=== PATIENT | female | born 1985 | race Caucasian/White ===

== ENCOUNTER 2018-03-13 00:47 | Inpatient (IN) | payer OTHER ==
[~2018-03-13] VITALS: Ht 162.6 cm; Wt 102.7 kg
[~2018-03-13 00:47] MED LIST: BIRTH CONTROL; CYCL10 PO; HYDACE5 PO; OXYACE5T PO; PRED10 PO
[2018-03-13] MEDS ORDERED: LABE200 PO (01:42)
[2018-03-13] MEDS ORDERED: Evening Primro1 EACH PO (01:43)
[2018-03-13] MEDS ORDERED: Verotin-Gr Cap1 EACH PO (01:43)
[2018-03-13] MEDS ORDERED: IRON150C PO (01:44)
[2018-03-13 02:17] LABS: BASOPHILS ABSOLUTE AUTO 0.03 K/mm3 (0.00-0.23); BASOPHILS PERCENT AUTO 0 % (0-2); EOSINOPHILS ABSOLUTE AUTO 0.09 K/mm3 (0.00-0.68); EOSINOPHILS PERCENT AUTO 1 % (0-6); Hematocrit 35.5 % (33.0-51.0); Hemoglobin 12.1 g/dL (11.5-16.0); IMMATURE GRAN ABSOLUTE AUTO 0.07 K/mm3 (0.00-0.10); IMMATURE GRAN PERCENT AUTO 1 % (0-1); LYMPHOCYTES ABSOLUTE AUTO 1.75 K/mm3 (0.84-5.20); LYMPHOCYTES PERCENT AUTO 18 % (21-46); MONOCYTES ABSOLUTE AUTO 0.49 K/mm3 (0.16-1.47); MONOCYTES PERCENT AUTO 5 % (4-13); Mean Corpuscular HGB 29.7 pg (26.0-34.0); Mean Corpuscular HGB Conc 34.1 g/dL (31.5-36.5); Mean Corpuscular Volume 87 fL (80-100); Mean Platelet Volume 11.5 fL (9.1-12.4); NEUTROPHILS ABSOLUTE AUTO 7.57 K/mm3 (1.96-9.15); NEUTROPHILS PERCENT AUTO 76 % (41-73); Platelet Count 221 K/mm3 (150-400); RDW Coefficient Variation 14.2 % (11.7-14.2); RDW Standard Deviation 44.6 fL (35.1-46.3); Red Blood Cell Count 4.07 M/mm3 (3.80-5.20)
[2018-03-14 05:46] LABS: BASOPHILS ABSOLUTE AUTO 0.03 K/mm3 (0.00-0.23); BASOPHILS PERCENT AUTO 0 % (0-2); EOSINOPHILS ABSOLUTE AUTO 0.08 K/mm3 (0.00-0.68); EOSINOPHILS PERCENT AUTO 1 % (0-6); Hematocrit 31.6 % (33.0-51.0); Hemoglobin 10.6 g/dL (11.5-16.0); IMMATURE GRAN ABSOLUTE AUTO 0.03 K/mm3 (0.00-0.10); IMMATURE GRAN PERCENT AUTO 0 % (0-1); LYMPHOCYTES ABSOLUTE AUTO 1.82 K/mm3 (0.84-5.20); LYMPHOCYTES PERCENT AUTO 16 % (21-46); MONOCYTES ABSOLUTE AUTO 0.56 K/mm3 (0.16-1.47); MONOCYTES PERCENT AUTO 5 % (4-13); Mean Corpuscular HGB 30.1 pg (26.0-34.0); Mean Corpuscular HGB Conc 33.5 g/dL (31.5-36.5); Mean Corpuscular Volume 90 fL (80-100); Mean Platelet Volume 11.3 fL (9.1-12.4); NEUTROPHILS PERCENT AUTO 78 % (41-73); Platelet Count 180 K/mm3 (150-400); RDW Coefficient Variation 14.4 % (11.7-14.2); RDW Standard Deviation 46.9 fL (35.1-46.3); Red Blood Cell Count 3.52 M/mm3 (3.80-5.20); White Blood Cell Count 11.52 K/mm3 (4.00-11.30)
[2018-03-15] MEDS ORDERED: IBU800 MG PO (09:35)
== END 2018-03-15 10:30 | disposition home or self-care (01) | DRG 775 ==
LOC: BC 00:47 → OBS 00:47 → BC 01:08
PROVIDERS: Nurse Practitioner Obstetrics & Gynecology
PROC: 10E0XZZ Delivery of Products of Conception, External Approach (ICD-10-PCS; principal; 2018-03-13)
PROC: 00HU33Z Insertion of Infusion Device into Spinal Canal, Percutaneous Approach (ICD-10-PCS; 2018-03-13)
PROC: 3E0R3BZ Introduction of Anesthetic Agent into Spinal Canal, Percutaneous Approach (ICD-10-PCS; 2018-03-13)
DX: O42.02 Full-term premature rupture of membranes, onset of labor within 24 hours of rupture (principal); O13.4 Gestational [pregnancy-induced] hypertension without significant proteinuria, complicating childbirth; O77.0 Labor and delivery complicated by meconium in amniotic fluid; O99.824 Streptococcus B carrier state complicating childbirth; O43.193 Other malformation of placenta, third trimester; O70.0 First degree perineal laceration during delivery; Z3A.39 39 weeks gestation of pregnancy; Z37.0 Single live birth; Z87.891 Personal history of nicotine dependence
CPT/HCPCS: 36415; 51702; 85025; J0290; J1885; J2405; J2590; J3010; J7120

== ENCOUNTER 2020-06-27 19:58 | Inpatient (IN) | payer OTHER ==
[~2020-06-27] VITALS: Ht 162.6 cm; Wt 100.9 kg
[~2020-06-27 19:58] MED LIST changes: +Evening Primro1 EACH PO; +IBU800 MG PO; +IRON150C PO; +LABE200 PO; +Verotin-Gr Cap1 EACH PO
[2020-06-27] MEDS ORDERED: MAGNESIUM OXID500 MG (20:15)
[2020-06-27] MEDS ORDERED: LABE200 PO (20:15)
[2020-06-27] MEDS ORDERED: IRON18 MG (20:18)
[2020-06-27 21:27] LABS: BASOPHILS ABSOLUTE AUTO 0.03 K/mm3 (0.00-0.23); BASOPHILS PERCENT AUTO 0 % (0-2); EOSINOPHILS ABSOLUTE AUTO 0.05 K/mm3 (0.00-0.68); EOSINOPHILS PERCENT AUTO 1 % (0-6); Hematocrit 32.7 % (33.0-51.0); Hemoglobin 10.7 g/dL (11.5-16.0); IMMATURE GRAN ABSOLUTE AUTO 0.02 K/mm3 (0.00-0.10); IMMATURE GRAN PERCENT AUTO 0 % (0-1); LYMPHOCYTES ABSOLUTE AUTO 1.54 K/mm3 (0.84-5.20); LYMPHOCYTES PERCENT AUTO 18 % (21-46); MONOCYTES ABSOLUTE AUTO 0.45 K/mm3 (0.16-1.47); MONOCYTES PERCENT AUTO 5 % (4-13); Mean Corpuscular HGB Conc 32.7 g/dL (31.5-36.5); Mean Corpuscular Volume 92 fL (80-100); NEUTROPHILS ABSOLUTE AUTO 6.71 K/mm3 (1.96-9.15); NEUTROPHILS PERCENT AUTO 76 % (41-73); Platelet Count 161 K/mm3 (150-400); RDW Coefficient Variation 14.7 % (11.7-14.2); RDW Standard Deviation 49.4 fL (35.1-46.3); Red Blood Cell Count 3.57 M/mm3 (3.80-5.20)
[2020-06-27 21:37] LABS: Alanine Aminotransfer (ALT/SGP 22 U/L (12-78); Albumin, Blood 2.6 g/dL (3.4-5.0); Albumin/Globulin Ratio 0.6 (0.8-1.8); Alk Phos 160 U/L (50-136); Anion Gap 8 mmol/L (6-16); Aspartate Aminotrans (AST/SGOT 21 U/L (12-37); Bilirubin, Total 0.4 mg/dL (0.1-1.0); Blood Urea Nitrogen 12 mg/dL (8-24); Bun/Creatinine Ratio 16.9 (12.0-20.0); CO2, Blood 21 mmol/L (21-32); Calcium, Blood 9.1 mg/dL (8.5-10.1); Chloride, Blood 110 mmol/L (98-108); Creatinine, Blood 0.71 mg/dL (0.40-1.00); Globulin, Blood 4.1 g/dL (2.2-4.0); Glomerular Filtration Rate >60 (60-); Glucose, Blood 80 mg/dL (70-99); Potassium, Blood 4.1 mmol/L (3.5-5.5); Sodium, Blood 139 mmol/L (136-145); Total Protein, Blood 6.7 g/dL (6.4-8.2)
--- NOTE | 2020-06-27 22:27 | NUR ---
2 attempts by Woody, 2 attempts bt Leila RN, 1 attempt by facilities technician student, and 1 attempt by Fanny WHITNEY
--- NOTE | 2020-06-28 15:32 | NUR ---
RN ROUNDED TO HELP W/ . PT HAS BEEN PUMPING AND HAS A GOOD AMOUNT OF COLOSTRUM IN SYRINGE AT BEDSIDE. ATTEMPTED TO HELP LATCH NB AT BREAST, MOM STATES NB HAD FED ON OTHER SIDE JUST BEFORE RN CAME TO ROOM, NB NOT SHOWING ANY INTEREST IN FEEDING AT THIS TIME. INSTRUCT/DEMO CORRECT POSITIONING, LATCHING, AND HAND EXPRESSION. INSTRUCTED PT IN SUPPLY AND DEMAND OF MILK SUPPLY. MOM AND DAD LOVING W/ NB, BOTH DENY ANY FURTHER QUESTIONS OR CONCERNS.
--- NOTE | 2020-06-29 00:04 | NUR ---
06-28-20 2100 pt c/o lower back discomfort whener her spinal was. egg crate mattress on bed and given kpad for heat to lower back
[2020-06-29 05:00] LABS: BASOPHILS ABSOLUTE AUTO 0.03 K/mm3 (0.00-0.23); BASOPHILS PERCENT AUTO 0 % (0-2); EOSINOPHILS ABSOLUTE AUTO 0.05 K/mm3 (0.00-0.68); EOSINOPHILS PERCENT AUTO 1 % (0-6); Hematocrit 34.4 % (33.0-51.0); Hemoglobin 11.3 g/dL (11.5-16.0); IMMATURE GRAN ABSOLUTE AUTO 0.03 K/mm3 (0.00-0.10); IMMATURE GRAN PERCENT AUTO 0 % (0-1); LYMPHOCYTES ABSOLUTE AUTO 0.68 K/mm3 (0.84-5.20); LYMPHOCYTES PERCENT AUTO 7 % (21-46); MONOCYTES ABSOLUTE AUTO 0.19 K/mm3 (0.16-1.47); MONOCYTES PERCENT AUTO 2 % (4-13); Mean Corpuscular HGB 29.9 pg (26.0-34.0); Mean Corpuscular HGB Conc 32.8 g/dL (31.5-36.5); Mean Corpuscular Volume 91 fL (80-100); Mean Platelet Volume 12.3 fL (9.1-12.4); NEUTROPHILS ABSOLUTE AUTO 8.97 K/mm3 (1.96-9.15); NEUTROPHILS PERCENT AUTO 90 % (41-73); Platelet Count 136 K/mm3 (150-400); RDW Coefficient Variation 14.8 % (11.7-14.2); Red Blood Cell Count 3.78 M/mm3 (3.80-5.20); White Blood Cell Count 9.95 K/mm3 (4.00-11.30)
--- NOTE | 2020-06-29 05:33 | NUR ---
06-29-20 0530 pt states her pain is slightly lessened. states it mostly hurts where her spinal was placed, states :it feels like I was punched in the back" continues with heated kpad and encouraged to lay on her side when possible
--- NOTE | 2020-06-29 09:15 | NUR ---
PT GIVEN WRITTEN AND VERBAL DC INSTRUCTIONS. PT VERBALIZES UNDERSTTANDING AND QUESTIONS ANSWERED. pT WILL FOLLOW UP SCHEDULED AT [facility] FOR PPFU AFTER BABIES TSB RESULTS COMES BACK. PRESCRIPTION FOR IBUPROFEN GIVEN.
--- NOTE | 2020-06-29 12:45 | NUR ---
D/C HOME W/S.O. AND BABY; DENIES QUESTIONS OR CONCERNS
== END 2020-06-29 12:45 | disposition home or self-care (01) | DRG 807 ==
LOC: OBS 19:58 → BC 19:59 → OBS 20:08 → BC 20:09
PROVIDERS: ADMIT Nurse Practitioner Obstetrics & Gynecology
PROC: 3E0P7VZ Introduction of Hormone into Female Reproductive, Via Natural or Artificial Opening (ICD-10-PCS; 2020-06-27)
PROC: 10E0XZZ Delivery of Products of Conception, External Approach (ICD-10-PCS; principal; 2020-06-28)
PROC: 00HU33Z Insertion of Infusion Device into Spinal Canal, Percutaneous Approach (ICD-10-PCS; 2020-06-28)
PROC: 3E0R3BZ Introduction of Anesthetic Agent into Spinal Canal, Percutaneous Approach (ICD-10-PCS; 2020-06-28)
DX: O11.4 Pre-existing hypertension with pre-eclampsia, complicating childbirth (principal); Z37.0 Single live birth; O99.824 Streptococcus B carrier state complicating childbirth; Z3A.38 38 weeks gestation of pregnancy; O77.0 Labor and delivery complicated by meconium in amniotic fluid; O69.2XX0 Labor and delivery complicated by other cord entanglement, with compression, not applicable or unspecified
CPT/HCPCS: 36415; 51702; 80053; 85025; A9270; J0290; J1885; J2001; J2590; J3010; J7120

== ENCOUNTER → 2021-04-21 | Outpatient (CLI) | payer OTHER ==
[~2021-04-21] MED LIST changes: +IRON18 MG; +MAGNESIUM OXID500 MG
== END | disposition home or self-care (01) ==
LOC: LAB SHORT 13:04 → LAB 13:04
DX: D22.4 Melanocytic nevi of scalp and neck (principal)
CPT/HCPCS: 88305

== ENCOUNTER → 2022-11-28 | Outpatient (CLI) | payer OTHER | END | disposition home or self-care (01) | LOC: LAB 11:30 → LAB SHORT 11:30 | DX: N39.0 Urinary tract infection, site not specified (principal); N94.3 Premenstrual tension syndrome; N95.1 Menopausal and female climacteric states; I10 Essential (primary) hypertension; R68.82 Decreased libido; Z79.890 Hormone replacement therapy | CPT/HCPCS: 87077; 87086; 87147; 87186 ==

== ENCOUNTER 2023-08-09 06:37 | Day surgery (SDC) | payer OTHER ==
[2023-08-07 14:45] LABS: BASOPHILS ABSOLUTE AUTO 0.03 K/mm3 (0.00-0.23); BASOPHILS PERCENT AUTO 1 % (0-2); EOSINOPHILS PERCENT AUTO 2 % (0-6); Hematocrit 40.4 % (33.0-51.0); Hemoglobin 13.4 g/dL (11.5-16.0); IMMATURE GRAN ABSOLUTE AUTO 0.02 K/mm3 (0.00-0.10); IMMATURE GRAN PERCENT AUTO 0 % (0-1); LYMPHOCYTES ABSOLUTE AUTO 1.37 K/mm3 (0.84-5.20); LYMPHOCYTES PERCENT AUTO 24 % (21-46); MONOCYTES ABSOLUTE AUTO 0.27 K/mm3 (0.16-1.47); MONOCYTES PERCENT AUTO 5 % (4-13); Mean Corpuscular HGB Conc 33.2 g/dL (31.5-36.5); Mean Corpuscular Volume 90 fL (80-100); Mean Platelet Volume 10.5 fL (9.1-12.4); NEUTROPHILS ABSOLUTE AUTO 3.97 K/mm3 (1.96-9.15); NEUTROPHILS PERCENT AUTO 69 % (41-73); Platelet Count 232 K/mm3 (150-400); RDW Standard Deviation 42.6 fL (35.1-46.3); Red Blood Cell Count 4.47 M/mm3 (3.80-5.20); White Blood Cell Count 5.76 K/mm3 (4.00-11.30)
[2023-08-07 15:46] LABS: Anion Gap 5 mmol/L (6-16); Beta HCG, Quantitative, Serum <1 mIU/mL (0-3); Blood Urea Nitrogen 13 mg/dL (8-24); Bun/Creatinine Ratio 17.2 (12.0-20.0); CO2, Blood 28 mmol/L (21-32); Calcium, Blood 8.4 mg/dL (8.5-10.1); Chloride, Blood 108 mmol/L (98-108); Creatinine, Blood 0.76 mg/dL (0.40-1.00); Glomerular Filtration Rate 103 (60-); Glucose, Blood 111 mg/dL (70-99); Potassium, Blood 3.3 mmol/L (3.5-5.5); Sodium, Blood 141 mmol/L (136-145)
[~2023-08-09] VITALS: Ht 162.6 cm; Wt 67.8 kg
[2023-08-09] VITALS (16 sets, daily range): BP systolic 108–182; BP diastolic 64–134
[~2023-08-09 06:37] MED LIST changes: +CENTRUM SILVER1 EAC2 PO
[2023-08-09] MEDS ORDERED: CATAPRES0.1 MG PO (07:10)
[2023-08-09] MEDS ORDERED: OZEMPIC0.25 MG/02 SQ (07:10)
--- NOTE | 2023-08-09 07:41 | NUR ---
Ambulatory in Day Surgery. History, Chart, Medications and Allergies reviewed before start of procedure. Lungs clear T/O to Auscultation. Patient confirms NPO status and agrees with scheduled surgery. Pre-Op teaching done. Pt verbalizes understanding. Patient States Post-Procedure ride home has been arranged. PT BELONGINGS PLACED UNDERNEATH [facility] FOR SAFEKEEPING.
--- NOTE | 2023-08-09 12:42 | NUR ---
PATIENT ARRIVED FROM PACU TODAY AT 1230. POD 0 TOTAL LAP HYSTER PATIENT IS DROWSY BUT IS ABLE TO RESPOND TO VERBAL STIMULI. VS ARE WNL. PATIENT REPORTS 8/10 PAIN AND PATIENT WAS GIVEN IV DILAUDID WHICH HAS HELPED MANAGE HER PAIN. HER ABD HAS X4 LAP SITES WITH WOUND GLUE THAT ARE C/D/I. PATIENT WAS ABLE TO TOLERATE A SMALL AMOUNT OF PO INTAKE. PRIETO IS DRAINING PER GRAVITY WITH YELLOW URINE. PATIENT IS LAYING IN BED WITH CALL LIGHT IN REACH AND AT BEDSIDE.
--- NOTE | 2023-08-09 15:03 | NUR ---
SHIFT SUMMARY: POD 0 TOTAL LAP HYSTER PATIENT IS MORE AWAKE THIS AFTERNOON AND IS A&OX4. PATIENT SBP IS HIGH HOWEVER, HER OTHER VS ARE WNL. TO MANAGE PATIENTS SBP SHE WAS GIVEN HER PO CATAPRES JUST NOW. WILL CONTINUE TO MONITOR HER SBP. HER ABD HAS X4 LAP SITES WITH WOUND GLUE THAT ARE C/D/I. SHE IS TOLERATING PO INTAKE. PRIETO WAS DISCONTINUED AT 1440 AND SHE WAS ABLE TO VOID 100ML. PATIENT ZAKI PAD HAS SCANT AMOUNT OF BLEEDING. SHE IS LAYING BACK IN BED WITH CALL LIGHT IN REACH AND AT BEDSIDE.
[2023-08-10 00:08] VITALS: BP 123/88
[2023-08-10 04:20] VITALS: BP 137/80
--- NOTE | 2023-08-10 04:25 | NUR ---
SHIFT SUMMARY POD 1 LAP HYSTERECTOMY 4 LAP SITES CLOSED WITH GLUE, C/D/I. PAIN MANAGED PER EMAR. PT UP TO THE BATHROOM, VOIDING, TOLERATING PO INTAKE. DENIES N/V. VSS. PLAN FOR DISCHARGE TODAY. NO OTHER CONCERNS AT THIS TIME. CALL LIGHT WITHIN REACH.
[2023-08-10 07:03] LABS: Hematocrit 35.3 % (33.0-51.0); Hemoglobin 11.7 g/dL (11.5-16.0); Mean Corpuscular HGB Conc 33.1 g/dL (31.5-36.5); Mean Corpuscular Volume 91 fL (80-100); Mean Platelet Volume 10.5 fL (9.1-12.4); Platelet Count 237 K/mm3 (150-400); RDW Coefficient Variation 13.1 % (11.7-14.2); White Blood Cell Count 11.45 K/mm3 (4.00-11.30)
[2023-08-10 07:47] VITALS: BP 130/95
[2023-08-10] MEDS ORDERED: Percocet 5-3251 EACH PO (12:01)
[2023-08-10] MEDS ORDERED: IBUP800 PO (12:01)
[2023-08-10] MEDS ORDERED: ESTR2 PO (12:01)
[2023-08-10] MEDS ORDERED: PROM25 PO (12:03)
[2023-08-10] MEDS ORDERED: SIME80CH PO (12:03)
--- NOTE | 2023-08-10 12:20 | NUR ---
DISCHARGE NOTE: PATIENT WAS EDUCATED ON DISCHARGE INSTRUCTIONS. SHE VERBALIZED UNDERSTANDING OF INSTRUCTIONS AND HAD NO FURTHER QUESTIONS AT THIS TIME. IV WAS TAKEN OUT AND WNL. PAIN IS MANAGED WITH ORAL PAIN MEDS. HER ABD LAP SITES X4 WITH WOUND GLUE ARE C/D/I. HER ZAKI PAD HAS SCANT AMOUNT OF BLEEDING ON IT. PATIENT IS TOLERATING PO INTAKE AND IS VOIDING/PASSING GAS. SHE IS DRESSED AND HAS PERSONAL ITEMS IN THE ROOM GATHERED. HER ESTRACE WAS FAXED TO THE [facility] WHICH DID GO THROUGH AND HAS A CONFIRMATION RESPONSE. PATIENT WAS WHEELCHAIRED OUT TO HER HUSBANDS CAR TO BE TAKEN HOME.
== END 2023-08-10 12:23 | disposition home or self-care (01) ==
LOC: ORSCMMR 06:37 → ORD 08:00 → ORSCMMR 08:00 → SURS 11:51 → ORSCMMR 08-10 12:23
PROVIDERS: Obstetrics & Gynecology
PROC: 0UT9FZZ Resection of Uterus, Via Natural or Artificial Opening With Percutaneous Endoscopic Assistance (ICD-10-PCS; principal; 2023-08-09 08:00)
PROC: 0UT2FZZ Resection of Bilateral Ovaries, Via Natural or Artificial Opening With Percutaneous Endoscopic Assistance (ICD-10-PCS; principal; 2023-08-09 08:00)
PROC: 0UT7FZZ Resection of Bilateral Fallopian Tubes, Via Natural or Artificial Opening With Percutaneous Endoscopic Assistance (ICD-10-PCS; principal; 2023-08-09 08:00)
PROC: 0U5F4ZZ Destruction of Cul-de-sac, Percutaneous Endoscopic Approach (ICD-10-PCS; principal; 2023-08-09 08:00)
DX: N92.0 Excessive and frequent menstruation with regular cycle (principal); N94.6 Dysmenorrhea, unspecified; N94.10 Unspecified dyspareunia; R10.2 Pelvic and perineal pain; K66.0 Peritoneal adhesions (postprocedural) (postinfection); N80.00 Endometriosis of the uterus, unspecified; N80.30 Endometriosis of pelvic peritoneum, unspecified; N83.8 Other noninflammatory disorders of ovary, fallopian tube and broad ligament; K80.20 Calculus of gallbladder without cholecystitis without obstruction
CPT/HCPCS: 36415; 80048; 84702; 85025; 85027; 86850; 86900; 86901; 88305; 88307; A9270; J0690; J1100; J1170; J1885; J2405; J2704; J3010; J7120

== ENCOUNTER → 2023-09-05 | Outpatient (CLI) | payer OTHER ==
[~2023-09-05] MED LIST changes: +CATAPRES0.1 MG PO; +ESTR2 PO; +IBUP800 PO; +OZEMPIC0.25 MG/02 SQ; +PROM25 PO; +Percocet 5-3251 EACH PO; +SIME80CH PO
== END ==
LOC: LAB SHORT 07:59 → PLD 07:59
DX: D48.5 Neoplasm of uncertain behavior of skin (principal)
CPT/HCPCS: 88305

== ENCOUNTER → 2025-04-08 | Outpatient (CLI) | payer OTHER ==
[2025-04-08 09:24] LABS: BASOPHILS ABSOLUTE AUTO 0.01 K/mm3 (0.00-0.23); BASOPHILS PERCENT AUTO 0 % (0-2); EOSINOPHILS ABSOLUTE AUTO 0.00 K/mm3 (0.00-0.68); EOSINOPHILS PERCENT AUTO 0 % (0-6); Hematocrit 37.9 % (33.0-51.0); Hemoglobin 13.0 g/dL (11.5-16.0); IMMATURE GRAN ABSOLUTE AUTO 0.01 K/mm3 (0.00-0.10); IMMATURE GRAN PERCENT AUTO 0 % (0-1); LYMPHOCYTES ABSOLUTE AUTO 0.61 K/mm3 (0.84-5.20); LYMPHOCYTES PERCENT AUTO 9 % (21-46); MONOCYTES ABSOLUTE AUTO 0.27 K/mm3 (0.16-1.47); MONOCYTES PERCENT AUTO 4 % (4-13); Mean Corpuscular HGB Conc 34.3 g/dL (31.5-36.5); Mean Corpuscular Volume 90 fL (80-100); NEUTROPHILS ABSOLUTE AUTO 5.79 K/mm3 (1.96-9.15); NEUTROPHILS PERCENT AUTO 87 % (41-73); NRBC ABSOLUTE 0.00 K/mm3 (0.00-0.02); NRBC Auto 0.0 /100 WBC (0.0-0.2); Platelet Count 176 K/mm3 (150-400); RDW Coefficient Variation 12.3 % (11.7-14.2); RDW Standard Deviation 40.6 fL (35.1-46.3)
[2025-04-08 09:35] LABS: Alanine Aminotransfer (ALT/SGP 42.0 U/L (12-78); Albumin, Blood 2.9 g/dL (3.4-5.0); Albumin/Globulin Ratio 0.7 (0.8-1.8); Aspartate Aminotrans (AST/SGOT 40.0 U/L (12-37); Bilirubin, Total 0.5 mg/dL (0.1-1.0); Blood Urea Nitrogen 7.0 mg/dL (8-24); CO2, Blood 29.0 mmol/L (21-32); Calcium, Blood 8.7 mg/dL (8.5-10.1); Creatinine, Blood 0.8 mg/dL (0.40-1.00); Globulin, Blood 4.0 g/dL (2.2-4.0); Glucose, Blood 98.0 mg/dL (70-99); Potassium, Blood 3.0 mmol/L (3.5-5.5); Sodium, Blood 135.0 mmol/L (136-145); Total Protein, Blood 6.9 g/dL (6.4-8.2)
[2025-04-08 09:40] LABS: Anion Gap 12.0 mmol/L (3-11); Chloride, Blood 97.0 mmol/L (98-108)
== END | disposition home or self-care (01) ==
LOC: LAB 09:20 → LAB SHORT 09:20
PROVIDERS: Physician Assistant Medical
DX: R50.9 Fever, unspecified (principal)
CPT/HCPCS: 80053; 85025

== ENCOUNTER 2025-05-16 21:09 | Observation (INO) | payer OTHER ==
[~2025-05-16] VITALS: Ht 162.6 cm; Wt 70.3 kg
[2025-05-16] MEDS ORDERED: Adipex-P37.5 M1 PO (21:34)
[2025-05-16] MEDS ORDERED: AMLODIPINE-OLM1 EAC4 (21:34)
[2025-05-16] MEDS ORDERED: PROG100 PO (21:35)
[2025-05-16] MEDS ORDERED: TESTOSTERONE (21:35)
[2025-05-16] MEDS ORDERED: OZEMPIC0.25 MG/02 (21:35)
[2025-05-16] MEDS ORDERED: BUPR75 (21:36)
[2025-05-16 21:42] LABS: BASOPHILS ABSOLUTE AUTO 0.06 K/mm3 (0.00-0.23); BASOPHILS PERCENT AUTO 1 % (0-2); EOSINOPHILS ABSOLUTE AUTO 0.08 K/mm3 (0.00-0.68); EOSINOPHILS PERCENT AUTO 1 % (0-6); Hematocrit 29.9 % (33.0-51.0); Hemoglobin 10.1 g/dL (11.5-16.0); IMMATURE GRAN ABSOLUTE AUTO 0.02 K/mm3 (0.00-0.10); IMMATURE GRAN PERCENT AUTO 0 % (0-1); LYMPHOCYTES ABSOLUTE AUTO 2.53 K/mm3 (0.84-5.20); LYMPHOCYTES PERCENT AUTO 27 % (21-46); MONOCYTES ABSOLUTE AUTO 0.48 K/mm3 (0.16-1.47); MONOCYTES PERCENT AUTO 5 % (4-13); Mean Corpuscular HGB Conc 33.8 g/dL (31.5-36.5); Mean Corpuscular Volume 92 fL (80-100); NEUTROPHILS ABSOLUTE AUTO 6.16 K/mm3 (1.96-9.15); NEUTROPHILS PERCENT AUTO 66 % (41-73); NRBC ABSOLUTE 0.00 K/mm3 (0.00-0.02); NRBC Auto 0.0 /100 WBC (0.0-0.2); Platelet Count 280 K/mm3 (150-400); RDW Coefficient Variation 13.8 % (11.7-14.2); RDW Standard Deviation 46.7 fL (35.1-46.3)
[2025-05-16 22:00] LABS: Alanine Aminotransfer (ALT/SGP 36.0 U/L (12-78); Albumin, Blood 3.2 g/dL (3.4-5.0); Albumin/Globulin Ratio 1.1 (0.8-1.8); Anion Gap 8.0 mmol/L (3-11); Aspartate Aminotrans (AST/SGOT 11.0 U/L (12-37); Bilirubin, Total 0.3 mg/dL (0.1-1.0); Blood Urea Nitrogen 25.0 mg/dL (8-24); CO2, Blood 24.0 mmol/L (21-32); Calcium, Blood 8.2 mg/dL (8.5-10.1); Chloride, Blood 108.0 mmol/L (98-108); Creatinine, Blood 0.86 mg/dL (0.40-1.00); Globulin, Blood 2.9 g/dL (2.2-4.0); Glucose, Blood 55.0 mg/dL (70-99); Magnesium, Blood 1.9 mg/dL (1.6-2.4); Potassium, Blood 3.0 mmol/L (3.5-5.5); Sodium, Blood 137.0 mmol/L (136-145); Total Protein, Blood 6.1 g/dL (6.4-8.2)
[2025-05-16] MEDS ORDERED: NS 500 ML IV SCH (22:35)
[2025-05-16] MEDS ORDERED: Pantoprazole Sodium 40 MG Injection IV ONE (22:35)
[2025-05-17] VITALS (36 sets, daily range): BP systolic 124–152; BP diastolic 83–117
[2025-05-17] MEDS ORDERED: Ondansetron HCl 2 MG / ML 2ML Vial IV PRN (00:10)
[2025-05-17] MEDS ORDERED: OZEMPIC1 MG/0.72 SC (04:29)
[2025-05-17] MEDS ORDERED: ESCI10 PO (04:32)
[2025-05-17 05:46] LABS: BASOPHILS ABSOLUTE AUTO 0.04 K/mm3 (0.00-0.23); BASOPHILS PERCENT AUTO 1 % (0-2); EOSINOPHILS ABSOLUTE AUTO 0.05 K/mm3 (0.00-0.68); EOSINOPHILS PERCENT AUTO 1 % (0-6); Hematocrit 23.9 % (33.0-51.0); Hemoglobin 8.0 g/dL (11.5-16.0); IMMATURE GRAN ABSOLUTE AUTO 0.03 K/mm3 (0.00-0.10); IMMATURE GRAN PERCENT AUTO 0 % (0-1); LYMPHOCYTES ABSOLUTE AUTO 2.18 K/mm3 (0.84-5.20); LYMPHOCYTES PERCENT AUTO 28 % (21-46); MONOCYTES ABSOLUTE AUTO 0.32 K/mm3 (0.16-1.47); MONOCYTES PERCENT AUTO 4 % (4-13); Mean Corpuscular HGB Conc 33.5 g/dL (31.5-36.5); Mean Corpuscular Volume 95 fL (80-100); NEUTROPHILS ABSOLUTE AUTO 5.19 K/mm3 (1.96-9.15); NEUTROPHILS PERCENT AUTO 67 % (41-73); NRBC ABSOLUTE 0.00 K/mm3 (0.00-0.02); NRBC Auto 0.0 /100 WBC (0.0-0.2); Platelet Count 222 K/mm3 (150-400); RDW Coefficient Variation 14.0 % (11.7-14.2); RDW Standard Deviation 48.0 fL (35.1-46.3)
[2025-05-17 06:11] LABS: Alanine Aminotransfer (ALT/SGP 29.0 U/L (12-78); Albumin, Blood 2.6 g/dL (3.4-5.0); Albumin/Globulin Ratio 1.1 (0.8-1.8); Anion Gap 5.0 mmol/L (3-11); Aspartate Aminotrans (AST/SGOT 11.0 U/L (12-37); Bilirubin, Total 0.5 mg/dL (0.1-1.0); Blood Urea Nitrogen 19.0 mg/dL (8-24); CO2, Blood 26.0 mmol/L (21-32); Calcium, Blood 7.5 mg/dL (8.5-10.1); Chloride, Blood 109.0 mmol/L (98-108); Creatinine, Blood 0.68 mg/dL (0.40-1.00); Globulin, Blood 2.3 g/dL (2.2-4.0); Glucose, Blood 96.0 mg/dL (70-99); Magnesium, Blood 1.9 mg/dL (1.6-2.4); Potassium, Blood 3.4 mmol/L (3.5-5.5); Sodium, Blood 137.0 mmol/L (136-145); Total Protein, Blood 4.9 g/dL (6.4-8.2)
--- NOTE | 2025-05-17 06:23 | NUR ---
ADMISSION AND SHIFT SUMMARY ASSUMED CARE AT 0425. PT A/Ox4, VSS ON RA. CONTINUOUS PULSE OX AND TELE MONITORING, SPO2 > 92% AND NSR. SPOUSE ROOMING IN. NO VOIDS OR STOOL. CLEAR LIQUID DIET UNTIL 0800. PT REPORTS NAUSEA, ZOFRAN EFFECTIVE. PT DENIES SOB, PAIN, OTHER COMPLAINTS.
[2025-05-17] MEDS ORDERED: Potassium Chl 20MEQ/Water100ML 100 ML IV STA (07:44)
[2025-05-17 08:27] LABS: Ferritin, Serum 41.0 ng/mL (8-252); Total Iron Binding Capacity 215.0 ug/dL (250-450)
[2025-05-17 10:44] LABS: Hematocrit 26.8 % (33.0-51.0); Hemoglobin 8.8 g/dL (11.5-16.0)
[2025-05-17] MEDS ORDERED: Midazolam HCl 1MG / ML 2ML Vial ONE (15:23)
--- NOTE | 2025-05-17 15:39 | NUR ---
1530 to day surgery via wheelchair. with patient
--- NOTE | 2025-05-17 15:52 | NUR ---
05/17/25 1552 Renee Yanez CONFIRMED AND REVIEWED H&P, MEDCICATIONS, ALLERGIES, MEDICAL HISTORY, RESPIRATORY HISTORY, VITAL SIGNS, 3-LEAD EKG, CONSENTS, AND PHYSICIAN ORDERS. PATIENT CONFIRMS NPO STATUS AND AGREES WITH SCHEDULED PROCEDURE. MONITOR INTACT WITH CONTINUOUS PULSE OXIMETRY, CAPNOGRAPHY, 3-LEAD EKG, INTERMITTENT BP. SUPPLEMENTAL O2 TO BE TITRATED THROUGHOUT PROCEDURE TO MAINTAIN O2 SATURATION ABOVE 90%. PATIENT DETERMINED TO BE ASA APPROPRIATE FOR PROPOFOL SEDATION PRIOR TO START OF PROCEDURE BY DR. LYONS.
--- NOTE | 2025-05-17 16:39 | NUR ---
SHIFT SUMMARY PT AXO4, COOPERATIVE, ABLE TO MAKE NEEDS KNONW. PT IS IND IN ROOM, NEEDS LINE MANAGEMENT, FAMILY IS BEDSIDE IS ASSIST. TOELRATING MEDICATION. COMPETED BOWEL PREP THIS AM AND WENT FOR IMAGING APPROX 1600. ON TELE. PT DID HAVE DEEP RED STOOL DURING BOWEL PREP, LAST BM, FRONT END LOADER DRIVER REPORTS PT HAVING YELLOW OUTPUT INSTEAD OF RED. H&H IMPROVED THIS AM. BED IN LOWEST POSITION, CALL LIGHT WITHIN REACH.
[2025-05-17] MEDS ORDERED: Ondansetron HCl 2 MG / ML 2ML Vial ONE (16:41)
--- NOTE | 2025-05-17 18:12 | NUR ---
DISCHARGE PT AXO4, COOPERATIVE, ABLE TO MAKE NEED SKONW. PT IS SBA AFTER PROCEDURE. PT IS AWARE OF RESULTS AND FOLLOW UP STEPS WITH DR LYONS. DID ASSESS VITALS AFTER PROCEDURE. THIS RN DC'D TELE AND IV WITHOUT EVENTS. PT WAS WHEELED OUT BY WC BY FAMILY MEMBER.
== END 2025-05-17 18:11 | disposition home or self-care (01) ==
LOC: ER 21:09 → ERHOLD 21:10 → MEDS 21:10
PROVIDERS: Internal Medicine Gastroenterology; Student in an Organized Health Care Education/Training Program; ADMIT Student in an Organized Health Care Education/Training Program
PROC: 0DBM8ZZ Excision of Descending Colon, Via Natural or Artificial Opening Endoscopic (ICD-10-PCS; principal; 2025-05-17 14:30)
PROC: 0DJ08ZZ Inspection of Upper Intestinal Tract, Via Natural or Artificial Opening Endoscopic (ICD-10-PCS; principal; 2025-05-17 14:30)
DX: C18.6 Malignant neoplasm of descending colon (principal); D50.0 Iron deficiency anemia secondary to blood loss (chronic); I10 Essential (primary) hypertension; Z87.891 Personal history of nicotine dependence; Z79.899 Other long term (current) drug therapy; Z88.2 Allergy status to sulfonamides; Z90.710 Acquired absence of both cervix and uterus
CPT/HCPCS: 36415; 74177; 80053; 82607; 82728; 82746; 82947; 83540; 83550; 83735; 85014; 85018; 85025; 86850; 86900; 86901; 86923; 88305; 88342; 93005; 93010; 94762; 96374-59; 96375; 99285-25; A9270; G0378; J2250; J2405; J2470; J2704; J3480; J7030; J7120; Q9967